=== PATIENT | female | born 1950 | race Caucasian/White ===

== ENCOUNTER 2017-03-16 12:57 | Emergency (ER) | payer MEDICARE ==
--- NOTE | 2017-03-16 13:27 | UC ---
Ear Complaint HPI - HPI Summary HPI Summary: 67 YEAR OLD FEMALE PRESENTS WITH RIGHT EAR PAIN.PATIENT TRANSFERRED TO [facility]. - History of Current Complaint Stated Complaint: RIGHT EAR PAIN, FEVER Time Seen by Provider: 03/16/17 13:23 - Allergies/Home Medications Allergies/Adverse Reactions: Allergies Allergy/AdvReac Type Severity Reaction Status Date / Time NSAIDs Allergy Intermediate Hives Verified 12/01/15 13:05 Statins Allergy Intermediate Hives Verified 03/16/17 14:16 Sulfa Antibiotics Allergy Intermediate Hives Verified 12/01/15 13:05 PMH/Surg Hx/FS Hx/Imm Hx - Surgical History Surgical History: Yes Surgery Procedure, Year, and Place: CSP DISCETOMY, TSP DISECTOMY, LSP DISCECTOMY , DORSAL STIMULATOR LOWER BACK rt hip replacement, carpal tunnel release, csection x 2, cholecystectomy, tonsillectomy,hysterectomy - Family History Known Family History: Positive: None, Other - Arthritis - Social History Alcohol Use: None Substance Use Type: None Smoking Status (MU): Never Smoked Tobacco Have You Smoked in the Last Year: No - Immunization History Most Recent Influenza Vaccination: June 2015 Review of Systems Constitutional: Negative Skin: Negative Eyes: Negative ENT: Negative Respiratory: Negative Cardiovascular: Negative Gastrointestinal: Negative Genitourinary: Negative Motor: Negative Neurovascular: Negative Musculoskeletal: Negative Neurological: Negative Psychological: Negative All Other Systems Reviewed And Are Negative: Yes Physical Exam Triage Information Reviewed: Yes Eye Exam: Normal Dental Exam: Normal Neck exam: Normal Neck: Positive: 1 Respiratory Exam: Normal Cardiovascular Exam: Normal Abdominal Exam: Normal Musculoskeletal Exam: Normal Neurological Exam: Normal Psychological Exam: Normal Skin Exam: Normal Ear Complaint Course/Dx - Differential Dx/Diagnosis Provider Diagnoses: EAR PAIN Discharge - Discharge Plan Condition: Stable Disposition: HOME Prescriptions: Amoxicillin (*) [Amoxicillin 875 MG (*)] 875 mg PO Q12H #20 tab Patient Education Materials: Sinusitis (ED) Referrals: Aiden Koenig MD [Primary Care Provider] - If Needed
--- NOTE | 2017-03-16 13:55 | UC ---
Throat Pain/Nasal Jeff HPI - HPI Summary HPI Summary: 67 YEAR OLD FEMALE PRESENTS WITH RIGHT EAR PAIN. Pt presents with c/o right ear pain, fever, chills, nasal congestion, generalized malaise, and sinus pressure. - History of Current Complaint Stated Complaint: RIGHT EAR PAIN, FEVER Time Seen by Provider: 03/16/17 13:23 Hx Obtained From: Patient ?: No Onset/Duration: Gradual Onset, Lasting Days - 4 days Severity: Moderate Associated Signs & Symptoms: Positive: Sinus Discomfort, Fever - Epiglottits Risk Factors Epiglottis Risk Factors: Negative - Allergies/Home Medications Allergies/Adverse Reactions: Allergies Allergy/AdvReac Type Severity Reaction Status Date / Time NSAIDs Allergy Intermediate Hives Verified 12/01/15 13:05 Statins Allergy Intermediate Hives Verified 03/16/17 14:16 Sulfa Antibiotics Allergy Intermediate Hives Verified 12/01/15 13:05 PMH/Surg Hx/FS Hx/Imm Hx Previously Healthy: Yes Endocrine History: Diabetes Cardiovascular History: Hypertension - Surgical History Surgical History: Yes Surgery Procedure, Year, and Place: CSP DISCETOMY, TSP DISECTOMY, LSP DISCECTOMY , DORSAL STIMULATOR LOWER BACK rt hip replacement, carpal tunnel release, csection x 2, cholecystectomy, tonsillectomy,hysterectomy - Family History Known Family History: Positive: None, Other - Arthritis - Social History Lives: With Family Alcohol Use: None Substance Use Type: None Smoking Status (MU): Never Smoked Tobacco Have You Smoked in the Last Year: No - Immunization History Most Recent Influenza Vaccination: June 2015 Review of Systems Constitutional: Negative Skin: Negative Eyes: Negative ENT: Sore Throat, Ear Ache, Sinus Congestion, Sinus Pain/Tenderness Respiratory: Negative Cardiovascular: Negative Gastrointestinal: Negative Genitourinary: Negative Motor: Negative Neurovascular: Negative Musculoskeletal: Negative Neurological: Headache Psychological: Negative All Other Systems Reviewed And Are Negative: Yes Physical Exam Triage Information Reviewed: Yes Appearance: Ill-Appearing Vital Signs Reviewed: Yes Eye Exam: Normal ENT Exam: Other ENT: Positive: Nasal congestion, TMs normal, Other: - maxillary sinus tenderness Dental Exam: Normal Neck exam: Normal Neck: Positive: 1 Respiratory Exam: Normal Cardiovascular Exam: Normal Abdominal Exam: Normal Musculoskeletal Exam: Normal Neurological Exam: Normal Psychological Exam: Normal Skin Exam: Normal Throat Pain/Nasal Course/Dx - Differential Dx/Diagnosis Differential Diagnosis/HQI/PQRI: Influenza, Sinusitis Provider Diagnoses: sinusitis Discharge - Discharge Plan Condition: Stable Disposition: HOME Prescriptions: Amoxicillin (*) [Amoxicillin 875 MG (*)] 875 mg PO Q12H #20 tab Patient Education Materials: Sinusitis (ED) Referrals: Aiden Koenig MD [Primary Care Provider] - If Needed
[2017-03-16] MEDS ORDERED: Acetaminophen TAB* 325 MG PO ONE (14:17)
[2017-03-16 14:27] VITALS: BP 93/71
== END 2017-03-16 14:33 | disposition home or self-care (01) ==
LOC: UCCORT 12:57
DX: H92.01 Otalgia, right ear (principal)
CPT/HCPCS: 99212; A9270-GY; G0463

== ENCOUNTER 2017-03-20 13:24 | Emergency (ER) | payer MEDICARE ==
[2017-03-20] MEDS ORDERED: NS 0.9% 1000 ML* 2,000 ML IV ONE (15:02)
--- NOTE | 2017-03-20 15:27 | RAD ---
HISTORY: Headache, fever, sinusitis COMPARISONS: None TECHNIQUE: Multiple contiguous axial CT scans were obtained of the head without intravenous contrast. FINDINGS: HEMORRHAGE/INFARCT: There is no hemorrhage or acute infarct. MASSES/SHIFT: There is no mass or shift. EXTRA-AXIAL SPACES: There are no extra-axial fluid collections. SULCI AND VENTRICLES: The sulci and ventricles are normal in size and position for the patient's stated age. CEREBRUM: There are no focal parenchymal abnormalities. BRAINSTEM: There are no focal parenchymal abnormalities. CEREBELLUM: There are no focal parenchymal abnormalities. VESSELS: The vessels are grossly normal. PARANASAL SINUSES: The paranasal sinuses are clear. ORBITS: The orbits are unremarkable. BONES AND SOFT TISSUE: No bone or soft tissue abnormalities are noted. OTHER: None IMPRESSION: NO ACUTE INTRACRANIAL PATHOLOGY.
[2017-03-20 16:04] LABS: Hematocrit 37 % (35-47); Mean Corpuscular HGB Conc 32 g/dl (31-36); Mean Corpuscular Hemoglobin 29 pg (27-31); Mean Corpuscular Volume 90 fL (80-97); Mean Platelet Volume 9 um3 (7.4-10.4); Red Blood Count 4.15 10^6/ul (4.0-5.4); Red Cell Distribution Width 14 % (10.5-15); White Blood Count 9.7 10^3/ul (3.5-10.8)
[2017-03-20 16:11] LABS: Urine Bilirubin Negative (Negative); Urine Glucose Negative (Negative); Urine Nitrite Negative (Negative)
[2017-03-20 16:17] LABS: Albumin 3.6 g/dL (3.2-5.2); BUN/Creatinine Ratio 19.7 (8-20); Calcium 9.3 mg/dL (8.6-10.3); EGFR African American 97.9 (>60); EGFR Non-African American 76.1 (>60); Globulin 4.1 g/dL (2-4); Potassium 3.9 mmol/L (3.5-5.0); Total Bilirubin 0.3 mg/dL (0.2-1.0); Total Protein 7.7 g/dL (6.4-8.9)
[2017-03-20 16:25] LABS: Urine Bacteria Absent (Absent)
[2017-03-20 17:50] VITALS: BP 125/65
--- NOTE | 2017-03-20 18:42 | ED ---
Rita Yoder Edward, scribed for Chandrakant Fernández MD on 03/20/17 at 1429 . HPI Febrile Illness - HPI Summary HPI Summary: 67 y/o female presents to ED c/o fever starting Thursday (102.4 this morning). Patient took Tylenol for her fever at 10:30 this morning. Associated sx: nasal drip, sinus pressure, diffuse joint pain (especially ankles), HARP (forehead), neck pain, and vomiting (Thursday). The HARP is rated at a 7/10. Denies sore throat , cough, diarrhea, and issues with walking. Pt was seen at Thursday and diagnosed with sinusitis. Patient was given amoxicillin and is on it now, but sx have not improved since. PMHx fusion, bronchitis. Patient does not believe this to be same as previous episodes of bronchitis. No travel outside of the [place] recently. - History of Current Complaint Chief Complaint: EDFever Time Seen by Provider: 03/20/17 14:23 Hx Obtained From: Patient Onset/Duration: Started Days Ago - Started thursday Initial Severity: Moderate Current Severity: Moderate Pain Intensity: 7 Pain Scale Used: 0-10 Numeric Associated Signs and Symptoms: Headache, Joint Pain - Diffuse, Vomiting, Other: - Sinus pressure, neck pain - Allergy/Home Medications Allergies/Adverse Reactions: Allergies Allergy/AdvReac Type Severity Reaction Status Date / Time NSAIDs Allergy Intermediate Hives Verified 12/01/15 13:05 Statins Allergy Intermediate Hives Verified 03/16/17 14:16 Sulfa Antibiotics Allergy Intermediate Hives Verified 12/01/15 13:05 PMH/Surg Hx/FS Hx/Imm Hx Previously Healthy: No Endocrine/Hematology History: Reports: Hx Diabetes, Hx Thyroid Disease - Hypothyroidism Cardiovascular History: Reports: Hx Hypertension Denies: Hx Pacemaker/ICD Respiratory History: Denies: Hx Asthma, Hx Chronic Obstructive Pulmonary Disease (COPD), Hx Lung Cancer, Hx Pneumonia, Hx Pulmonary Embolism GI History: Denies: Hx Gastrointestinal Bleed Sensory History: Denies: Hx Hearing Aid Neurological History: Denies: Hx Dementia, Hx Migraine, Hx Seizures, Hx Transient Ischemic Attacks (TIA) Psychiatric History: Reports: Hx Anxiety, Hx Depression Denies: Hx Panic Disorder - Cancer History Cancer Type, Location and Year: Bladder cancer - Surgical History Surgery Procedure, Year, and Place: CSP DISCETOMY, TSP DISECTOMY, LSP DISCECTOMY , DORSAL STIMULATOR LOWER BACK rt hip replacement, carpal tunnel release, csection x 2, cholecystectomy, tonsillectomy,hysterectomy Infectious Disease History: No Infectious Disease History: Denies: Traveled Outside the [place] in Last 30 Days - Family History Known Family History: Positive: Other - Arthritis - Social History Occupation: Retired Lives: With Family Alcohol Use: None Substance Use Type: Reports: None Smoking Status (MU): Never Smoked Tobacco Have You Smoked in the Last Year: No Review of Systems Positive: Fever Eyes: Negative ENT: Other - sinus pressure, nasal drip Negative: Sore Throat Cardiovascular: Negative Respiratory: Negative Negative: Cough Positive: Vomiting. Negative: Diarrhea Genitourinary: Negative Positive: Arthralgia - Diffuse joint pain, neck pain Skin: Negative Neurological: Other - Negative unsteady gait Positive: Headache Psychological: Normal All Other Systems Reviewed And Are Negative: Yes Physical Exam - Summary Physical Exam Summary: The patient is well-nourished in no acute distress and in no acute pain. The skin is warm and dry and skin color reflects adequate perfusion. HEENT: The head is normocephalic and atraumatic. The pupils are equal and reactive. The conjunctivae are clear and without drainage. Nares are patent and without drainage. Mouth reveals moist mucous membranes and the throat is without erythema and exudate. There is post-nasal drip and erythema in the back of the throat. The external ears are intact. The ear canals are patent and without drainage. The tympanic membranes are intact with no erythema. There was percussion tenderness to the maxillary sinuses. Neck is supple with full range of motion and non-tender. There is no nuchal rigidity. There are no carotid bruits. There is no neck vein distension. Respiratory: Chest is non-tender. Lungs are clear to auscultation and breath sounds are symmetrical and equal. Cardiovascular: Hear is regular rate and rhythm. There is no murmur or rub auscultated. There is no peripheral edema and pulses are symmetrical and equal. Abdomen: The abdomen is soft and non-tender. There are normal bowel sounds heard in all four quadrants and there is no organomegaly palpated. Musculoskeletal: There is no back pain noted. Extremities are non-tender with full range of motion. There is good capillary refill. There is no peripheral edema or calf tenderness elicited. Neurological: Patient is alert and oriented to person, place and time. The patient has symmetrical motor strength in all four extremities. Cranial nerves are grossly intact. Deep tendon reflexes are symmetrical and equal in all four extremities. Psychiatric: The patient has an appropriate affect and does not exhibit any anxiety or depression. Triage Information Reviewed: Yes Vital Signs On Initial Exam: Initial Vitals Temp Pulse Resp BP Pulse Ox 98.1 F 102 20 109/64 99 03/20/17 13:36 03/20/17 13:36 03/20/17 13:36 03/20/17 13:36 03/20/17 13:36 Vital Signs Reviewed: Yes Diagnostics - Vital Signs Vital Signs Temp Pulse Resp BP Pulse Ox 03/20/17 13:40 98.3 F 102 20 109/64 100 03/20/17 13:36 98.1 F 102 20 109/64 99 - Laboratory Lab Results: Lab Results 03/20/17 03/20/17 03/20/17 Range/Units 14:14 15:45 15:45 WBC 9.7 (3.5-10.8) 10^3/ul RBC 4.15 (4.0-5.4) 10^6/ul Hgb 12.0 (12.0-16.0) g/dl Hct 37 (35-47) % MCV 90 (80-97) fL MCH 29 (27-31) pg MCHC 32 (31-36) g/dl RDW 14 (10.5-15) % Plt Count 262 (150-450) 10^3/ul MPV 9 (7.4-10.4) um3 Neut % (Auto) 76.5 (38-83) % Lymph % (Auto) 15.9 L (25-47) % Park % (Auto) 4.6 (1-9) % Eos % (Auto) 2.4 (0-6) % Baso % (Auto) 0.6 (0-2) % Absolute Neuts (auto) 7.4 (1.5-7.7) 10^3/ul Absolute Lymphs (auto) 1.5 (1.0-4.8) 10^3/ul Absolute Monos (auto) 0.4 (0-0.8) 10^3/ul Absolute Eos (auto) 0.2 (0-0.6) 10^3/ul Absolute Basos (auto) 0.1 (0-0.2) 10^3/ul Absolute Nucleated RBC 0 10^3/ul Nucleated RBC % 0 Sodium 135 (133-145) mmol/L Potassium 3.9 (3.5-5.0) mmol/L Chloride 99 L (101-111) mmol/L Carbon Dioxide 27 (22-32) mmol/L Anion Gap 9 (2-11) mmol/L BUN 15 (6-24) mg/dL Creatinine 0.76 (0.51-0.95) mg/dL Est GFR ( Amer) 97.9 (>60) Est GFR (Non-Af Amer) 76.1 (>60) BUN/Creatinine Ratio 19.7 (8-20) Glucose 97 (70-100) mg/dL Lactic Acid (0.5-2.0) mmol/L Calcium 9.3 (8.6-10.3) mg/dL Total Bilirubin 0.30 (0.2-1.0) mg/dL AST 23 (13-39) U/L ALT 52 (7-52) U/L Alkaline Phosphatase 108 H (34-104) U/L Total Protein 7.7 (6.4-8.9) g/dL Albumin 3.6 (3.2-5.2) g/dL Globulin 4.1 H (2-4) g/dL Albumin/Globulin Ratio 0.9 L (1-3) Urine Color Yellow Urine Appearance Clear Urine pH 6.0 (5-9) Ur Specific [place] 1.018 (1.010-1.030) Urine Protein Negative (Negative) Urine Ketones Trace H (Negative) Urine Blood Negative (Negative) Urine Nitrate Negative (Negative) Urine Bilirubin Negative (Negative) Urine Urobilinogen Negative (Negative) Ur Leukocyte Esterase Trace H (Negative) Urine WBC (Auto) 1+(6-10/hpf) H (Absent) Urine RBC (Auto) Trace(0-2/hpf) (Absent) Ur Squamous Epith Cells Present H (Absent) Ur Transition Epith Cell Present H (Absent) Urine Bacteria Absent (Absent) Hyaline Casts Present H (Absent) Urine Glucose Negative (Negative) 03/20/17 Range/Units 15:45 WBC (3.5-10.8) 10^3/ul RBC (4.0-5.4) 10^6/ul Hgb (12.0-16.0) g/dl Hct (35-47) % MCV (80-97) fL MCH (27-31) pg MCHC (31-36) g/dl RDW (10.5-15) % Plt Count (150-450) 10^3/ul MPV (7.4-10.4) um3 Neut % (Auto) (38-83) % Lymph % (Auto) (25-47) % Park % (Auto) (1-9) % Eos % (Auto) (0-6) % Baso % (Auto) (0-2) % Absolute Neuts (auto) (1.5-7.7) 10^3/ul Absolute Lymphs (auto) (1.0-4.8) 10^3/ul Absolute Monos (auto) (0-0.8) 10^3/ul Absolute Eos (auto) (0-0.6) 10^3/ul Absolute Basos (auto) (0-0.2) 10^3/ul Absolute Nucleated RBC 10^3/ul Nucleated RBC % Sodium (133-145) mmol/L Potassium (3.5-5.0) mmol/L Chloride (101-111) mmol/L Carbon Dioxide (22-32) mmol/L Anion Gap (2-11) mmol/L BUN (6-24) mg/dL Creatinine (0.51-0.95) mg/dL Est GFR ( Amer) (>60) Est GFR (Non-Af Amer) (>60) BUN/Creatinine Ratio (8-20) Glucose (70-100) mg/dL Lactic Acid 1.5 (0.5-2.0) mmol/L Calcium (8.6-10.3) mg/dL Total Bilirubin (0.2-1.0) mg/dL AST (13-39) U/L ALT (7-52) U/L Alkaline Phosphatase (34-104) U/L Total Protein (6.4-8.9) g/dL Albumin (3.2-5.2) g/dL Globulin (2-4) g/dL Albumin/Globulin Ratio (1-3) Urine Color Urine Appearance Urine pH (5-9) Ur Specific [place] (1.010-1.030) Urine Protein (Negative) Urine Ketones (Negative) Urine Blood (Negative) Urine Nitrate (Negative) Urine Bilirubin (Negative) Urine Urobilinogen (Negative) Ur Leukocyte Esterase (Negative) Urine WBC (Auto) (Absent) Urine RBC (Auto) (Absent) Ur Squamous Epith Cells (Absent) Ur Transition Epith Cell (Absent) Urine Bacteria (Absent) Hyaline Casts (Absent) Urine Glucose (Negative) Result Diagrams: 03/20/17 15:45 03/20/17 15:45 Lab Statement: Any lab studies that have been ordered have been reviewed, and results considered in the medical decision making process. - CT BRAIN CT CT Interpretation: No Acute Changes - No acute intracranial pathology. CT Interpretation Completed By: Radiologist Course/Dx - Course Assessment/Plan: 7 y/o female presents to ED c/o fever starting Thursday (102.4 this morning). Associated sx: nasal drip, sinus pressure, diffuse joint pain ( especially ankles), HARP (forehead), neck pain, and vomiting (Thursday). Pt was seen at Thursday and diagnosed with sinusitis. Patient was given amoxicillin and is on it now, but sx have not improved since. Brain CT showed No acute intracranial pathology. Pt will be discharged home with a Fever and Sinus Infection Failure. Pt will be switched over to Augmentin. - Febrile Illness Differential Diagnoses: Bacteremia, Fever of Unknown Origin, Pyelonephritis, Viremia - Diagnoses Provider Diagnoses: Fever, Sinus Infection Failure Discharge - Discharge Plan Condition: Stable Disposition: HOME Prescriptions: Amoxicillin/Clavulanate TAB* [Augmentin TAB 875*] 875 mg PO BID #20 tab Patient Education Materials: Fever in Adults (ED), Sinusitis (ED) Referrals: Aiden Koenig MD [Primary Care Provider] - 3 Days (F/U in 2-3 days.) Additional Instructions: Switch over to Augmentin as prescribed The documentation as recorded by the Rita amor Edward accurately reflects the service I personally performed and the decisions made by Jolene serrano Drew, MD.
== END 2017-03-20 17:51 | disposition home or self-care (01) ==
LOC: ED 13:24
DX: L08.89 Other specified local infections of the skin and subcutaneous tissue (principal); R50.9 Fever, unspecified
CPT/HCPCS: 36415; 70450; 80053; 81003; 81015; 83605; 85025; 87040; 87086; 99283

== ENCOUNTER 2017-12-18 11:30 | Emergency (ER) | payer MEDICARE ==
--- OUTSIDE RECORDS SUMMARY | 2017-12-18 12:18 | XMS REPORT ---
:1950 External Reference #:[id number] Author Organization [facility] Address [address] [place] [address] Phone [phone] Care Team Providers Name Role Phone Aiden Koenig M.D. Primary Care Physician Unavailable Payers Type Date Identification Numbers Payment Provider Subscriber Commercial Policy Number: [id number] BS [employer] Rudolphus Melissa Tiwari PayID: [id number] [address] [address] [place] [address] Problems Date Description Provider Status Onset: Neuropathy Active Onset: Essential hypertension Active Onset: Anxiety Active Onset: Seasonal allergy Active Onset: Hypercholesterolemia Active Onset: Type 2 diabetes mellitus Active Onset: Cerebral hemorrhage Active Note: 1979 Onset: 07/13/2015 Nuclear senile cataract Cuba Anderson M.D. 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 Employment ETOH Use Occasionally consumes alcohol Smoking Patient has never smoked Recreational Drug Use Denies Drug Use Daily Caffeine Consumes on average 1 cup of regular coffee per day Allergies, Adverse Reactions, Alerts Date Description Reaction Status Severity Comments 07/13/2015 Sulfa Antibiotics active 11/05/2015 NSAIDs active Medications Medication Date Status Form Strength Qnty SIG Indications Ordering Provider Amlodipine Active Tablets 10mg Unknown Besylate 000 Metformin HCL Active Tablets 500mg Unknown 000 Levothyroxine Active Tablets 50mcg Unknown Sodium 000 Sertraline HCL Active Tablets 50mg Unknown 000 Lansoprazole Active Capsules 30mg [address] Lisinopril Active Tablets 10mg Unknown 000 Zolpidem Active Tablets 10mg Unknown Tartrate 000 Alprazolam Active Tablets 0.25mg Unknown 000 Doxycycline Active 100mg Unknown Hyclate 000 Oxycodone-Acetam Active Tablets 7.5-325mg Unknown inophen 000 Metronidazole Active Cream 0.75% Larry Ext Unknown 000 To Face bid Oxycodone HCL Active Tablets 20mg Unknown 000 Probiotic Active Capsules Unknown 000 Zyrtec Allergy Active Capsules 10mg as Unknown 000 needed Caltrate 600+D Active Tablets 600-400mg- Unknown 000 Unit Co Q 10 Active Capsules 100mg Unknown 000 Colace Active Capsules 100mg 2 by Unknown 000 mouth twice a day Multi Vitamin Active Tablets Unknown 000 Crestor Active Tablets 5mg Unknown 000 Gabapentin Active Capsules 300mg Unknown 000 Results Description No Information Procedures Date CPT Code Description Status 11/09/2015 12427 Visual Field Exam Extended Completed 11/09/2015 65689 Est Patient Intermediate Exam Completed 11/05/2015 54507 Scanning Computerized Opthalmic Diagnostic Posterior Completed Seg Retina 07/13/2015 32570 Determination Of Refractive State Completed 07/13/2015 82461 Est Patient Comprehensive Exam Completed 02/20/2014 92802 Est Patient Comprehensive Exam Completed 03/07/2013 88866 Est Patient Comprehensive Exam Completed 07/30/2010 87025 Determination Of Refractive State Completed 07/30/2010 56335 Est Patient Comprehensive Exam Completed Plan of Care 11/23/2017 - Jaylyn Leonardo O.D.H25.813 Combined forms of age-related cataract, bilateralComments:You have been diagnosed with cataracts. If you are happy with your vision as it is now, then we willsee you at your next scheduled appointment. If you feel like your vision is getting worse before your scheduled appointment, please call Christen or Melany at [phone].Follow up:1 Year Follow UpE11.9 Type 2 diabetes mellitus without complicationsComments:You have diabetes. I do not detect any changes in both of your retinas from diabetes at this time. Proper control of your diabetes is important for the health of your eyes. 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
[2017-12-18 12:25] VITALS: BP 123/60
--- NOTE | 2017-12-18 12:36 | UC ---
Ear Complaint HPI - HPI Summary HPI Summary: Pt presents with with sinus congestion and left ear "muffled" hearing for the last month. She has tried many OTC remedies including mucinex, antihistamines, cerumen disimpaction methods, and peroxide into her ear with no relief. Denies fever, chills, sore throat, SOB, chest pain. - History of Current Complaint Hx Obtained From: Patient Severity Currently: None Pain Intensity: 0 <Ernesto Mathew - Last Filed: 12/18/17 12:43> <Donna Francisco - Last Filed: 12/18/17 12:53> - History of Current Complaint Chief Complaint: UCGeneralIllness Stated Complaint: LEFT EAR COMPLIANT Time Seen by Provider: 12/18/17 12:20 - Allergies/Home Medications Allergies/Adverse Reactions: Allergies Allergy/AdvReac Type Severity Reaction Status Date / Time NSAIDS (Non-Steroidal Allergy Hives Verified 12/18/17 12:20 Anti-Inflamma Ctqhbxe-Vwz-Bqt Reductase Allergy Hives Verified 12/18/17 12:20 Inhibitor Sulfa (Sulfonamide Allergy Hives Verified 12/18/17 12:20 Antibiotics) Home Medications: Home Medications Calcium Carbonate/Vitamin D3 [Caltrate 600+D] 1 chw PO DAILY 12/18/17 [History Confirmed 12/18/17] Magnesium Oxide [Magnesium] 500 mg PO DAILY 12/18/17 [History Confirmed 12/18/17 ] amLODIPine TAB* [Norvasc 5 mg TAB*] 10 mg PO DAILY 12/18/17 [History Confirmed 12/18/17] PMH/Surg Hx/FS Hx/Imm Hx Endocrine History: Hypothyroidism Cardiovascular History: Hypertension GI/ History: Gastroesophageal Reflux Psychological History: Anxiety, Depression - Surgical History Surgical History: Yes Surgery Procedure, Year, and Place: CSP DISCETOMY, TSP DISECTOMY, LSP DISCECTOMY , DORSAL STIMULATOR LOWER BACK rt hip replacement, carpal tunnel release, csection x 2, cholecystectomy, tonsillectomy,hysterectomy. CVA 1978 - Family History Known Family History: Positive: None, Other - Arthritis - Social History Occupation: Retired Lives: With Family Alcohol Use: None Substance Use Type: None Smoking Status (MU): Never Smoked Tobacco Have You Smoked in the Last Year: No - Immunization History Most Recent Influenza Vaccination: June 2015 <Ernesto Mathew - Last Filed: 12/18/17 12:43> Review of Systems Constitutional: Negative Skin: Negative Eyes: Negative ENT: Sinus Congestion, Other - Muffled hearing left ear Respiratory: Negative Cardiovascular: Negative Neurovascular: Negative Musculoskeletal: Negative Neurological: Negative Psychological: Negative All Other Systems Reviewed And Are Negative: Yes <Ernesto Mathew - Last Filed: 12/18/17 12:43> Physical Exam - Summary Physical Exam Summary: GENERAL: NAD. WDWN. No pain distress. SKIN: No rashes, sores, ulcers, masses, lesions. HEENT: Head: AT/NC Eyes: EOM intact. Conjunctiva clear without inflammation or discharge. Ears: Hearing grossly normal. TMs intact, no bulging, erythema, or edema. Nose: Nasal mucosa pink and moist. NTTP maxillary and frontal sinus. Throat: Posterior oropharynx without exudates, erythema, or tonsillar enlargement. Uvula midline. NECK: Supple. Nontender. No lymphadenopathy. CHEST: CTAB. No r/r/w. No accessory muscle use. Breathing comfortably and in no distress. CV: RRR. Without m/r/g. Pulses intact. Brisk cap refill. NEURO: Alert. CN II-XII grossly intact. PSYCH: Age appropriate behavior. Triage Information Reviewed: Yes Vital Signs: Initial Vital Signs Temp 98 F 12/18/17 12:16 Pulse 71 12/18/17 12:16 Resp 17 12/18/17 12:16 BP 123/60 12/18/17 12:16 Pulse Ox 100 12/18/17 12:16 <Ernesto Mathew - Last Filed: 12/18/17 12:43> Vital Signs: Initial Vital Signs Temp 98 F 12/18/17 12:16 Pulse 71 12/18/17 12:16 Resp 17 12/18/17 12:16 BP 123/60 12/18/17 12:16 Pulse Ox 100 12/18/17 12:16 <Donna Francisco - Last Filed: 12/18/17 12:53> Ear Complaint Course/Dx - Course Course Of Treatment: Suspect eustachian tube dysfunction. I will have her try a short course of prednisone and daily flonase and refer her to ENT if her symptoms do not improve. - Differential Dx/Diagnosis Provider Diagnoses: eustachian tube dysfunction <Ernesto Mathew - Last Filed: 12/18/17 12:43> Discharge - Sign-Out/Discharge Documenting (check all that apply): Discharge - Billing Disposition and Condition Condition: STABLE Disposition: HOME <rEnesto Mathew - Last Filed: 12/18/17 12:43> - Sign-Out/Discharge Documenting (check all that apply): Discharge - Billing Disposition and Condition Condition: STABLE Disposition: HOME <NolanDonna - Last Filed: 12/18/17 12:53> - Discharge Plan Condition: Stable Disposition: HOME Prescriptions: predniSONE TAB* [Deltasone TAB*] 50 mg PO DAILY #5 tab Referrals: Aiden Koenig MD [Primary Care Provider] - Michael Gramajo MD [Medical Doctor] - If Needed Additional Instructions: If you develop a fever, shortness of breath, chest pain, new or worsening symptoms - please call your PCP or go to the ED. 1) Please try Flonase daily for your symptoms 2) If your symptoms persist or worsen, please call ENT at the number below to schedule a follow up appointment. Attestation Statement User Type: Provider - I was available for consult. This patient was seen by the SHANTE. The patient was not presented to, seen by, or examined by me. -Yair <Donna Francisco - Last Filed: 12/18/17 12:53>
== END 2017-12-18 12:50 | disposition home or self-care (01) ==
LOC: UCCORT 11:30
DX: H69.92 Unspecified Eustachian tube disorder, left ear (principal); E03.9 Hypothyroidism, unspecified; I10 Essential (primary) hypertension; K21.9 Gastro-esophageal reflux disease without esophagitis; F41.9 Anxiety disorder, unspecified; F32.9 Major depressive disorder, single episode, unspecified
CPT/HCPCS: 99212; G0463

== ENCOUNTER 2019-04-07 12:30 | Emergency (ER) | payer MEDICARE ==
[2019-04-07 13:38] VITALS: BP 133/67
[2019-04-07] MEDS ORDERED: oxyCODONE TAB* 5 MG TAB PO ONE (14:08)
[2019-04-07] MEDS ORDERED: HYDROcodone/ACETAMIN 5-325 MG* 1 TAB PO ONE (14:13)
--- NOTE | 2019-04-07 14:38 | UC ---
Back Pain HPI - HPI Summary HPI Summary: 69 year old female with multiple back surgeries- lumbar disectomy, thoracic stimulator, cervical fusion after hemmorhage, presents after fall in swimming pool on , mechanical fall, denies lightheadedness, dizziness. NO HARP, head injury. Patient states since she has noted increased lower back pain radiating into thoracic spine, ribs connecting to spine. h/o weakness L side after cervical hemm, no increase since injury. no incontinence, no bowel/ bladder changes since, no abdominal pains. no UE? LE changes. no muscle spasms, however sore in AM. Pain worse with sitting, better with ctanding - History of Current Complaint Chief Complaint: UCBackPain Stated Complaint: S/P FALL TAILBONE PAIN Time Seen by Provider: 04/07/19 13:40 Pain Intensity: 7 - Allergies/Home Medications Allergies/Adverse Reactions: Allergies Allergy/AdvReac Type Severity Reaction Status Date / Time NSAIDS (Non-Steroidal Allergy Hives Verified 04/07/19 13:39 Anti-Inflamma Guhajfz-Qnp-Trv Reductase Allergy Hives Verified 04/07/19 13:39 Inhibitor Sulfa (Sulfonamide Allergy Hives Verified 04/07/19 13:39 Antibiotics) Home Medications: Home Medications Gabapentin 1 tab PO TID 04/07/19 [History Confirmed 04/07/19] Rosuvastatin Calcium [Crestor] 1 tab PO EVERY OTHER DAY 04/07/19 [History Confirmed 04/07/19] tiZANidine TAB* [Zanaflex TAB*] 1 tab PO BID PRN 04/07/19 [History Confirmed ] PMH/Surg Hx/FS Hx/Imm Hx - Surgical History Surgical History: Yes Surgery Procedure, Year, and Place: T&A. [place] teeth removal. c-sections x2. Hermorrhoidectomy. Cholycystectomy. hysterectomy. R hip replacement. Lumbar discetomy. Cervical fusion. Spinal stimulator - Family History Known Family History: Positive: None, Other - Arthritis - Social History Alcohol Use: None Substance Use Type: None Smoking Status (MU): Never Smoked Tobacco Have You Smoked in the Last Year: No - Immunization History Most Recent Influenza Vaccination: June 2015 Physical Exam Vital Signs: Initial Vital Signs Temp 98.7 F 04/07/19 13:30 Pulse 71 04/07/19 13:30 Resp 18 04/07/19 13:30 BP 133/67 04/07/19 13:30 Pulse Ox 100 04/07/19 13:30 Discharge - Discharge Plan Referrals: Aiden Koenig MD [Primary Care Provider] -
== END 2019-04-07 15:29 | disposition home or self-care (01) ==
LOC: UCCORT 12:30
DX: M54.5 Low back pain (principal); Z98.1 Arthrodesis status; Z88.2 Allergy status to sulfonamides
CPT/HCPCS: 72070; 72110; 99212; A9270-GY; G0463

== ENCOUNTER 2023-12-18 02:00 | Inpatient (IN) ==
[2023-12-18] MEDS: Acetaminophen IV 1 GM/100ML 1,000 MG/100 ML BAG IV ONE (02:46)
[2023-12-18] MEDS: Lactated Ringers 1000 ml BAG 1,000 ML IV ONE (02:46)
[2023-12-18] MEDS: Morphine 4 MG/ML VIAL (1 ml) IV ONE (02:54)
[2023-12-18] MEDS ORDERED: Ondansetron 4 mg VIAL 2 MG/ML 2 ml VIAL ONE ×2 (03:09→15:33)
[2023-12-18] MEDS: Ondansetron 4 mg VIAL 2 MG/ML 2 ml VIAL IV ONE (03:13)
[2023-12-18] MEDS: HYDROmorphone 1 MG/1 ML SYRINGE IV ONE ×3 (04:19→08:35)
[2023-12-18 05:07] LABS: ABS Lymphocytes 1.4 10^3/uL (1.0-4.8); ABS Monocytes 0.5 10^3/uL (0.0-0.9); ABS Neutrophils 9.6 10^3/uL (1.5-7.6); ABS Nucleated RBC 0.01 10^3/ul; Eosinophil % 0.3 %; Hematocrit 30.9 % (35-45); Hemoglobin 10.4 g/dL (11.5-14.3); Lymphocyte % 12.3 %; Mean Corpuscular Hgb Conc 33.5 g/dL (31-36); Mean Corpuscular Volume 89.4 fL (80-97); Mean Platelet Volume 10.2 fL (7.5-11.2); Nucleated Red Blood Cells % 0.1 %/100WBC (0.0-0.8); Platelet Count 197 10^3/uL (150-450); Red Blood Count 3.46 10^6/uL (3.63-4.92); Red Cell Distribution Width 14.2 % (12-17); White Blood Count 11.6 10^3/uL (3.8-11.8)
[2023-12-18 05:41] LABS: Albumin 3.4 g/dL (3.2-5.2); Albumin/Globulin Ratio 1.5 (1-3); Calcium 8.1 mg/dL (8.6-10.3); Creatinine, Serum 0.75 mg/dL (0.51-0.95); Globulin 2.3 g/dL (2-4); Potassium 3.2 mmol/L (3.5-5.0); Total Bilirubin 0.3 mg/dL (0.2-1.0); Total Protein 5.7 g/dL (6.4-8.9); eGFR CKD-EPI 84.5 (>60)
[2023-12-18] MEDS ORDERED: Acetaminophen IV 1 GM/100ML 1,000 MG/100 ML BAG IV PRN (10:43)
[2023-12-18 11:42] LABS: Magnesium 1.5 mg/dL (1.9-2.7)
[2023-12-18] MEDS: HYDROmorphone 1 MG/1 ML SYRINGE IV SLOW PU PRN (12:26)
[2023-12-18] MEDS: KCL 20 MEQ/100 ML IVPREMIX 20 MEQ/100 ML BAG IV SCH (13:04)
[2023-12-18] MEDS ORDERED: ceFAZolin 2 GM PREMIX 2 GM/50 ML BAG ONE (13:17)
[2023-12-18 13:33] LABS: INR 1.13 (0.83-1.13)
[2023-12-18] MEDS ORDERED: Lidocaine 2% PF 5 ML VIAL ONE (14:04)
[2023-12-18] MEDS ORDERED: Propofol 10 MG/ML 20 ML BTL ONE (14:04)
[2023-12-18] MEDS ORDERED: Rocuronium 50 mg VIAL 10 mg/ml 5 ml VIAL (50 mg) ONE (14:05)
[2023-12-18] MEDS ORDERED: fentaNYL 250 mcg/5 ml 50 MCG/ML 5 ml VIAL (250 MCG) ONE (14:05)
[2023-12-18] MEDS ORDERED: Midazolam 2 mg/2 ml VIAL 1 mg/ml 2 ml VIAL (2 mg) ONE (14:05)
[2023-12-18] MEDS ORDERED: Bupivacaine 0.5% SDV PF 30ML VIAL ONE (14:16)
[2023-12-18] MEDS ORDERED: Lidocaine 1% w EPI 1:200,000 SDV 30 ML VIAL ONE (14:16)
[2023-12-18] MEDS ORDERED: Dexamethasone IV 4 MG/ML VIAL 1 ml VIAL ONE (15:33)
[2023-12-18] MEDS ORDERED: Acetaminophen IV 1 GM/100ML 1,000 MG/100 ML BAG IV ONE (15:46)
[2023-12-18] MEDS ORDERED: Magnesium Sulfate IV 0.5 GM/ML 2 ml VIAL (1 gm) ONE (16:26)
[2023-12-18] MEDS ORDERED: Calcium CHLORIDE 10% SYRINGE 1 GM/10 ML ONE (16:30)
[2023-12-18] MEDS ORDERED: Naloxone 0.4 mg VIAL 0.4 mg/ml 1 ml VIAL IV PRN (17:15)
[2023-12-18] MEDS ORDERED: Morphine 4 MG/ML VIAL (1 ml) IV PRN (17:15)
[2023-12-18] MEDS ORDERED: Dextrose 50% Syringe 50 ml 25 GM/50 ML SYRINGE IV PUSH PRN (19:16)
[2023-12-18] MEDS ORDERED: fentaNYL 100 mcg/2 ml 50 MCG/ML VIAL ONE (19:19)
[2023-12-18] MEDS: fentaNYL 100 mcg/2 ml 50 MCG/ML VIAL IV PRN (19:22)
[2023-12-18] MEDS: ceFAZolin 1 GM ADVAN 1 GM in NS 0.9% 50 ML 50 ML IVPB SCH (22:00)
[2023-12-18] MEDS: Fluticasone NASAL SPRAY 50MCG 16 gm SPRAY BTL INTRANASAL SCH (22:19)
[2023-12-18] MEDS: Magnesium Hydroxide LIQ 30 ML UDC PO SCH (22:19)
[2023-12-18] MEDS: Magnesium Sulf 4 GM/100 ML IV 4,000 MG/100 ML BAG IVPB ONE (22:42)
[2023-12-19] MEDS: Enoxaparin 40 MG/0.4 ML SYR SUBCUT SCH ×2 (00:29→07:44)
[2023-12-19 06:09] LABS: % Iron Saturation 11 % (15-55); .Transferrin 128 mg/dL (203-362); Anion Gap 10 mmol/L (2-16); Blood Urea Nitrogen 11 mg/dL (6-24); CO2 Carbon Dioxide 22 mmol/L (22-32); Calcium 7.8 mg/dL (8.6-10.3); Chloride 107 mmol/L (101-111); Creatinine, Serum 0.78 mg/dL (0.51-0.95); Glucose 138 mg/dL (70-100); Iron < 20 ug/dL (50-212); Magnesium 2.9 mg/dL (1.9-2.7); Potassium 3.2 mmol/L (3.5-5.0); Sodium 139 mmol/L (135-145); Total Iron Binding Capacity 179 mcg/dL (250-450); Unsaturated Iron Binding 159 ug/dL; eGFR CKD-EPI 80.6 (>60)
[2023-12-19 06:12] LABS: Hematocrit 25.5 % (35-45); Hemoglobin 8.3 g/dL (11.5-14.3); Mean Corpuscular Hemoglobin 29.7 pg (27-33); Mean Corpuscular Hgb Conc 32.5 g/dL (31-36); Mean Corpuscular Volume 91.2 fL (80-97); Red Blood Count 2.79 10^6/uL (3.63-4.92); Red Cell Distribution Width 14.1 % (12-17)
[2023-12-19 06:13] LABS: ABS Lymphocytes 1.4 10^3/uL (1.0-4.8); ABS Monocytes 0.7 10^3/uL (0.0-0.9); Lymphocyte % 13.9 %; Platelet Count 167 10^3/uL (150-450)
[2023-12-19 07:06] LABS: Ferritin 100.8 ng/mL (11-307)
[2023-12-19] MEDS: Morphine 2 MG/ML SYRINGE IV PRN ×2 (07:41→13:49)
[2023-12-19] MEDS ORDERED: Senna TAB 8.6 mg TAB PO PRN (07:53)
[2023-12-19] MEDS ORDERED: Lisinopril/HCTZ 20/12.5 TB(NF) PO SCH (09:00)
[2023-12-19] MEDS: Coenzyme Q10 CAP (NF) 100 MG PO SCH (10:00)
[2023-12-19] MEDS: Potassium Chlor 20 meq TAB.ER PO ONE (10:15)
[2023-12-19] MEDS: ceFAZolin 2 GM PREMIX 2 GM/50 ML BAG IVPB ONE (10:23)
[2023-12-20 05:51] LABS: ABS Lymphocytes 2.1 10^3/uL (1.0-4.8); ABS Monocytes 0.8 10^3/uL (0.0-0.9); ABS Neutrophils 5.7 10^3/uL (1.5-7.6); Eosinophil % 0.1 %; Hematocrit 21.3 % (35-45); Hemoglobin 7.3 g/dL (11.5-14.3); Lymphocyte % 24.6 %; Mean Corpuscular Hemoglobin 30.1 pg (27-33); Mean Corpuscular Volume 88.6 fL (80-97); Mean Platelet Volume 10.4 fL (7.5-11.2); Nucleated Red Blood Cells % 0.1 %/100WBC (0.0-0.8); Platelet Count 144 10^3/uL (150-450); Red Blood Count 2.41 10^6/uL (3.63-4.92); Red Cell Distribution Width 14.4 % (12-17); White Blood Count 8.7 10^3/uL (3.8-11.8)
[2023-12-20 06:03] LABS: Calcium 7.3 mg/dL (8.6-10.3); Creatinine, Serum 0.8 mg/dL (0.51-0.95); Magnesium 2.4 mg/dL (1.9-2.7); Potassium 3.9 mmol/L (3.5-5.0); eGFR CKD-EPI 78.2 (>60)
[2023-12-20] MEDS: Morphine 2 MG/ML SYRINGE IV PRN (09:00)
[2023-12-20 12:04] LABS: Hemoglobin 6.6 g/dL (11.5-14.3)
[2023-12-20] MEDS: Senna TAB 8.6 mg TAB PO SCH (20:07)
[2023-12-20 22:36] LABS: Hematocrit 25.9 % (35-45); Hemoglobin 8.5 g/dL (11.5-14.3)
[2023-12-21 07:57] LABS: ABS Eosinophils 0.1 10^3/uL (0.0-0.5); ABS Lymphocytes 2.1 10^3/uL (1.0-4.8); ABS Monocytes 0.5 10^3/uL (0.0-0.9); ABS Neutrophils 4.8 10^3/uL (1.5-7.6); Eosinophil % 1.6 %; Hematocrit 26.9 % (35-45); Hemoglobin 8.8 g/dL (11.5-14.3); Lymphocyte % 28.2 %; Mean Corpuscular Hemoglobin 29.7 pg (27-33); Mean Corpuscular Hgb Conc 32.8 g/dL (31-36); Mean Corpuscular Volume 90.5 fL (80-97); Mean Platelet Volume 10.1 fL (7.5-11.2); Platelet Count 146 10^3/uL (150-450); Red Blood Count 2.97 10^6/uL (3.63-4.92); Red Cell Distribution Width 14.8 % (12-17); White Blood Count 7.6 10^3/uL (3.8-11.8)
[2023-12-21 08:03] LABS: Calcium 7.2 mg/dL (8.6-10.3); Creatinine, Serum 0.64 mg/dL (0.51-0.95); Potassium 4.4 mmol/L (3.5-5.0); eGFR CKD-EPI 93.8 (>60)
[2023-12-22 11:05] LABS: Hematocrit 26.3 % (35-45); Hemoglobin 8.8 g/dL (11.5-14.3)
[2023-12-23 08:36] LABS: Hematocrit 25.6 % (35-45); Hemoglobin 8.6 g/dL (11.5-14.3)
[2023-12-23] MEDS: Ferric Gluconate IV 125 MG in NS 0.9% 100 ml BAG 100 ML IVPB ONE (18:38)
[2023-12-24 08:49] LABS: Rapid COVID-19 Molecular Undetected (Undetected)
[2023-12-24 09:43] VITALS: BP 130/50
== END 2023-12-24 11:00 | DRG 481 ==
LOC: EDHOLD 02:00 → ED 02:00 → SUATTDRO 09:45 → SSU 11:04
PROVIDERS: ADMIT Internal Medicine; ATTEND Internal Medicine